=== PATIENT | female | born 1970 | race Caucasian/White ===

== ENCOUNTER 2018-02-11 06:15 | Day surgery (SDC) | payer OTHER ==
[~2018-02-11] VITALS: Ht 170.2 cm; Wt 108.9 kg
[2018-02-11 07:24] VITALS: BP 146/98
[2018-02-11 11:20] VITALS: BP 133/77
== END 2018-02-11 10:05 | disposition home or self-care (01) ==
LOC: DS 06:15 → OR 08:30 → DS 10:05
DX: M47.896 Other spondylosis, lumbar region (principal); E11.9 Type 2 diabetes mellitus without complications; I10 Essential (primary) hypertension; G93.41 Metabolic encephalopathy; M51.26 Other intervertebral disc displacement, lumbar region; Z86.718 Personal history of other venous thrombosis and embolism; Z79.891 Long term (current) use of opiate analgesic; Z68.38 Body mass index [BMI] 38.0-38.9, adult; Z98.84 Bariatric surgery status; Z79.899 Other long term (current) drug therapy; Z98.890 Other specified postprocedural states
CPT/HCPCS: 77003; J2001; J2250; J2704; J3010; J3301; J3490; J7040; Q0092; Q9967